=== PATIENT | female | born 1995 | race Caucasian/White ===

== ENCOUNTER 2016-11-12 20:50 | Observation (INO) | payer MEDICAID ==
[~2016-11-12] VITALS: Ht 172.7 cm; Wt 93.9 kg
[2016-11-12 21:33] LABS: Basophils # (auto) 0 uL; Basophils % (auto) 0.2 % (0.0-2.0); CONDITION Y; Eosinophils # (auto) 0 uL; Eosinophils % (auto) 0.3 % (0.0-7.0); Hematocrit 42.3 % (36.0-46.0); Hemoglobin 14.6 g/dL (12.2-16.2); Lymphocytes # (auto) 2.3 uL; Lymphocytes % (auto) 13.5 % (10.0-50.0); Mean Corpuscular Hemoglobin 29.4 pg (28.0-32.0); Mean Corpuscular Hgb Conc. 34.5 g/dL (32.0-36.0); Mean Corpuscular Volume 85.3 fL (80.0-100.0); Mean Platelet Volume 8.8 fL (7.4-10.4); Monocytes # (auto) 1.1 uL; Monocytes % (auto) 6.6 % (0.0-12.0); Neutrophils # (auto) 13.8 uL; Neutrophils % (auto) 79.4 % (37.0-80.0); Platelet Count (auto) 337 10^3/uL (140-450); Red Cell Distribution Width 13.9 % (11.6-16.0); White Blood Cell 17.3 10^3/uL (4.4-10.8)
[2016-11-12 21:46] LABS: Albumin 4.2 g/dL (3.4-5.0); Anion Gap 13 (5-15); Aspartate Aminotransferase 15 U/L (15-37); BUN/Creatinine Ratio 14.9; Blood Urea Nitrogen 14 mg/dL (7-18); Calcium 9.4 mg/dL (8.5-10.1); Carbon Dioxide 20 mmol/L (21-32); Chloride 106 mmol/L (98-107); GFR African American 95 mL/min; GFR Non-African American 78 mL/min; Glucose 111 mg/dL (74-106); Potassium 3.4 mmol/L (3.5-5.1); Sodium 139 mmol/L (136-145)
[2016-11-12 21:50] LABS: Alkaline Phosphatase 67 U/L (45-117); Bilirubin, Total 1.3 mg/dL (0.2-1.0); Total Protein 8.7 g/dL (6.4-8.2)
[2016-11-12 22:31] LABS: Urine Bilirubin Negative (Negative); Urine Blood 1+ /uL (Negative); Urine Color Yellow (Yellow); Urine Glucose Normal (Normal); Urine Hyaline Cast FEW /lpf (0 - 2); Urine Ketone 4+ (Negative); Urine Mucus FEW (None Seen); Urine Nitrite Negative (Negative); Urine RBC 14 /hpf (0 - 4); Urine Squamous Epithelial Cell FEW /hpf (<5)
[2016-11-13] MEDS ORDERED: LORazepam 0.5 MG TAB PO PRN (05:30)
[2016-11-13] MEDS: OLANZapine 5 MG TAB PO SCH (10:35)
[2016-11-14] MEDS: OLANZapine 5 MG TAB PO SCH (14:43)
[2016-11-15] MEDS: OLANZapine 5 MG TAB PO SCH (14:48)
[2016-11-15] MEDS ORDERED: NITROFURANTOIN (MONO) 100 mg CAP PO ONE (15:45)
[2016-11-15 23:39] VITALS: BP 95/53
== END 2016-11-15 23:58 | disposition home or self-care (01) | DRG 751 ==
LOC: ER 21:00 → OVERFLOW 21:01 → ER 11-15 23:58
PROVIDERS: ADMIT Emergency Medicine; ATTEND Emergency Medicine
DX: F23 Brief psychotic disorder (principal); G92 Toxic encephalopathy; F32.9 Major depressive disorder, single episode, unspecified; F41.9 Anxiety disorder, unspecified; F12.10 Cannabis abuse, uncomplicated
CPT/HCPCS: 36415; 80053; 80307; 80320; 81001; 85025; 99285; G0378

== ENCOUNTER 2018-07-10 20:01 | Emergency (ER) | payer MEDICAID ==
[~2018-07-10] VITALS: Ht 165.1 cm; Wt 106.6 kg
[2018-07-10 20:15] VITALS: BP 101/70
[2018-07-10] MEDS ORDERED: LORazepam 2MG/ML-1ML VIAL IM ONE (21:45)
[2018-07-10] MEDS ORDERED: HALOPERIDOL LACTATE 5 MG/ML INJ VIAL IM ONE (21:45)
[2018-07-10] MEDS ORDERED: diphenhdrAMINE HCL 50 MG/1 ML VL IM ONE (21:45)
== END 2018-07-11 02:15 | disposition left against medical advice (07) ==
LOC: EDBD 20:01 → ER 20:09
DX: O99.341 Other mental disorders complicating pregnancy, first trimester (principal); O26.891 Other specified pregnancy related conditions, first trimester; F31.9 Bipolar disorder, unspecified; F23 Brief psychotic disorder; F12.10 Cannabis abuse, uncomplicated; F15.10 Other stimulant abuse, uncomplicated; Z3A.08 8 weeks gestation of pregnancy

== ENCOUNTER 2018-07-12 18:51 | Emergency (ER) | payer MEDICAID, OTHER ==
[~2018-07-12] VITALS: Ht 172.7 cm; Wt 104.3 kg
[2018-07-12] MEDS ORDERED: HALOPERIDOL LACTATE 5 MG/ML INJ VIAL ONE (19:24)
[2018-07-12] MEDS ORDERED: diphenhdrAMINE HCL 50 MG/1 ML VL ONE (19:24)
[2018-07-12] MEDS ORDERED: LORazepam 2MG/ML-1ML VIAL ONE (19:24)
[2018-07-12] MEDS ORDERED: HALOPERIDOL LACTATE 5 MG/ML INJ VIAL IM ONE (19:45)
[2018-07-12] MEDS ORDERED: LORazepam 2MG/ML-1ML VIAL IV ONE (19:45)
[2018-07-12] MEDS ORDERED: diphenhdrAMINE HCL 50 MG/1 ML VL IV ONE (19:45)
[2018-07-12] MEDS ORDERED: SODIUM CHLORIDE 0.9% 1,000 ML IV ONE (20:45)
[2018-07-12 22:32] LABS: Alanine Aminotransferase 23 U/L (13-56); Albumin 3.5 g/dL (3.4-5.0); Alkaline Phosphatase 52 U/L (45-117); Anion Gap 7 (5-15); Aspartate Aminotransferase 19 U/L (15-37); Bilirubin, Total 0.4 mg/dL (0.2-1.0); Blood Alcohol < 3.0 mg/dL (0-5); Blood Urea Nitrogen 9 mg/dL (7-18); Calcium 8.6 mg/dL (8.5-10.1); Carbon Dioxide 23 mmol/L (21-32); Chloride 109 mmol/L (98-107); GFR African American 109 mL/min; GFR Non-African American 90 mL/min; Glucose 94 mg/dL (74-106); Potassium 3.2 mmol/L (3.5-5.1); Sodium 139 mmol/L (136-145); Total Protein 7.3 g/dL (6.4-8.2)
[2018-07-12 23:06] LABS: Basophils # (auto) 0.1 uL; Basophils % (auto) 0.7 % (0.0-2.0); Eosinophils # (auto) 0.1 uL; Eosinophils % (auto) 0.5 % (0.0-7.0); Hemoglobin 12.9 g/dL (12.2-16.2); Lymphocytes # (auto) 3.5 uL; Lymphocytes % (auto) 29.3 % (10.0-50.0); Mean Corpuscular Hemoglobin 28.4 pg (28.0-32.0); Mean Corpuscular Hgb Conc. 34.1 g/dL (32.0-36.0); Mean Corpuscular Volume 83.4 fL (80.0-100.0); Monocytes % (auto) 8.1 % (0.0-12.0); Neutrophils # (auto) 7.4 uL; Neutrophils % (auto) 61.4 % (37.0-80.0); Nucleated Red Blood Cells % 0.1 %; Platelet Count (auto) 273 10^3/uL (140-450); Red Blood Cells 4.55 10^6/uL (4.0-5.20); Red Cell Distribution Width 13.6 % (11.8-14.3)
[2018-07-13 02:16] LABS: Salicylate < 1.7 mg/dL (2.8-20.0)
[2018-07-13 02:26] LABS: Acetaminophen < 2.0 ug/mL (10-30)
[2018-07-13 06:05] LABS: Urine Bacteria NONE SEEN /hpf (None Seen); Urine Blood Negative /uL (Negative); Urine Mucus MODERATE (None Seen); Urine Specific Gravity 1.032 (1.001-1.035); Urine WBC 3 /hpf (0 - 5)
[2018-07-13 06:27] LABS: Amphetamine Screen, Urine NEGATIVE (NEGATIVE); Barbiturate Scree,Urine NEGATIVE (NEGATIVE); Benzodiazephine Screen, Urine NEGATIVE (NEGATIVE); Cannabinoid Screen, Urine POSITIVE (NEGATIVE); Opiate Scree,Urine NEGATIVE (NEGATIVE)
[2018-07-13 06:37] LABS: Cocaine Screen, Urine NEGATIVE (NEGATIVE); Phencyclidine Screen, Urine NEGATIVE (NEGATIVE)
[2018-07-13] MEDS ORDERED: OLANZapine 5 MG TAB PO SCH (11:00)
[2018-07-13] MEDS ORDERED: NICOTINE 21MG/24 HR TOPICAL PATCH TD ONE (11:00)
[2018-07-13] MEDS ORDERED: LORazepam 0.5 MG TAB PO SCH (11:00)
[2018-07-13] MEDS ORDERED: POTASSIUM CHL 10% (20 MEQ/15ML) 15ml ORAL SOLN PO ONE (11:30)
[2018-07-13 12:57] VITALS: BP 95/52
[2018-07-13] MEDS ORDERED: diphenhdrAMINE HCL 25 MG CAP PO SCH (22:00)
[2018-07-14] MEDS ORDERED: FOLIC ACID 1 MG TAB PO SCH (10:00)
== END 2018-07-13 13:17 | disposition short-term general hospital (02) ==
LOC: ER 19:10 → MERGE 19:10 → ER 07-13 13:17
DX: R45.851 Suicidal ideations (principal); F31.9 Bipolar disorder, unspecified; F41.9 Anxiety disorder, unspecified; F20.9 Schizophrenia, unspecified
CPT/HCPCS: 36415; 51702; 71045; 80053; 80307; 80320; 80329; 81001; 84702; 85025; 93005; 94761; 96372; 96374; 96375; 99285; J1200; J1630; J2060; J7030; 96361

== ENCOUNTER 2019-02-17 13:42 | Emergency (ER) | payer MEDICAID ==
[~2019-02-17] VITALS: Ht 172.7 cm; Wt 79.4 kg
[2019-02-17 14:13] VITALS: BP 125/80
== END 2019-02-17 15:09 | disposition home or self-care (01) ==
LOC: ER 13:42
DX: Z04.6 Encounter for general psychiatric examination, requested by authority (principal); F29 Unspecified psychosis not due to a substance or known physiological condition; F32.9 Major depressive disorder, single episode, unspecified; F20.9 Schizophrenia, unspecified; F17.210 Nicotine dependence, cigarettes, uncomplicated; F12.10 Cannabis abuse, uncomplicated; F15.10 Other stimulant abuse, uncomplicated

== ENCOUNTER 2019-04-10 09:40 | Emergency (ER) | payer MEDICAID ==
[~2019-04-10] VITALS: Ht 165.1 cm; Wt 86.2 kg
[2019-04-10] MEDS ORDERED: HALOPERIDOL LACTATE 5 MG/ML INJ VIAL ONE (09:57)
[2019-04-10] MEDS ORDERED: diphenhdrAMINE HCL 50 MG/1 ML VL IM ONE (10:00)
[2019-04-10] MEDS ORDERED: LORazepam 2MG/ML-1ML VIAL IM ONE (10:00)
[2019-04-10] MEDS ORDERED: HALOPERIDOL LACTATE 5 MG/ML INJ VIAL IM ONE (10:00)
[2019-04-10 10:03] VITALS: BP 150/107
[2019-04-10 10:49] LABS: Basophils # (auto) 0.1 uL; Basophils % (auto) 0.7 % (0.0-2.0); Eosinophils # (auto) 0 uL; Eosinophils % (auto) 0.1 % (0.0-7.0); Hematocrit 40.7 % (36.0-46.0); Hemoglobin 14.1 g/dL (12.2-16.2); Lymphocytes # (auto) 1.3 uL; Lymphocytes % (auto) 14.1 % (10.0-50.0); Mean Corpuscular Hemoglobin 28.6 pg (28.0-32.0); Mean Corpuscular Hgb Conc. 34.5 g/dL (32.0-36.0); Mean Corpuscular Volume 82.7 fL (80.0-100.0); Monocytes # (auto) 0.8 uL; Monocytes % (auto) 8.8 % (0.0-12.0); Neutrophils # (auto) 6.8 uL; Neutrophils % (auto) 76.3 % (37.0-80.0); Platelet Count (auto) 230 10^3/uL (140-450); Red Blood Cells 4.92 10^6/uL (4.0-5.20); Red Cell Distribution Width 13.4 % (11.8-14.3); White Blood Cell 8.9 10^3/uL (4.4-10.8)
[2019-04-10 11:06] LABS: Albumin 3.6 g/dL (3.4-5.0); Anion Gap 10 (5-15); BUN/Creatinine Ratio 12.3; Blood Alcohol < 3.0 mg/dL (0-5); Blood Urea Nitrogen 10 mg/dL (7-18); Calcium 9.1 mg/dL (8.5-10.1); Carbon Dioxide 21 mmol/L (21-32); Chloride 110 mmol/L (98-107); GFR African American 111 mL/min; GFR Non-African American 92 mL/min; Glucose 101 mg/dL (74-106); Potassium 3.3 mmol/L (3.5-5.1); Sodium 141 mmol/L (136-145)
[2019-04-10 11:07] LABS: Acetaminophen < 2.0 ug/mL (10-30)
[2019-04-10 11:09] LABS: Alanine Aminotransferase 26 U/L (13-56); Alkaline Phosphatase 58 U/L (45-117); Aspartate Aminotransferase 18 U/L (15-37); Bilirubin, Total 0.5 mg/dL (0.2-1.0); Total Protein 8.1 g/dL (6.4-8.2)
[2019-04-10 16:49] LABS: Alcohol, Urine < 3.0 mg/dL (0-5); Barbiturate Scree,Urine POSITIVE (NEGATIVE); Benzodiazephine Screen, Urine NEGATIVE (NEGATIVE); Cannabinoid Screen, Urine POSITIVE (NEGATIVE); Cocaine Screen, Urine NEGATIVE (NEGATIVE); Opiate Scree,Urine NEGATIVE (NEGATIVE); Phencyclidine Screen, Urine NEGATIVE (NEGATIVE)
[2019-04-10 16:56] LABS: Amphetamine Screen, Urine NEGATIVE (NEGATIVE)
[2019-04-10 17:04] LABS: Urine Bacteria NONE SEEN /hpf (None Seen); Urine Blood 1+ /uL (Negative); Urine Mucus FEW (None Seen); Urine WBC 25 /hpf (0 - 5)
== END 2019-04-10 22:05 | disposition left against medical advice (07) ==
LOC: EDBD 09:40 → ER 09:40
DX: F41.9 Anxiety disorder, unspecified (principal); F31.9 Bipolar disorder, unspecified; F20.9 Schizophrenia, unspecified; R45.851 Suicidal ideations; F17.210 Nicotine dependence, cigarettes, uncomplicated; F12.10 Cannabis abuse, uncomplicated
CPT/HCPCS: 36415; 80053; 80307; 80320; 80329; 81001; 85025; 96372; 99284; J1200; J1630; J2060; A4565

== ENCOUNTER 2021-11-03 12:36 | Emergency (ER) | payer MEDICAID ==
[~2021-11-03] VITALS: Ht 175.3 cm; Wt 124.0 kg
[2021-11-03 13:02] VITALS: BP 95/60
[2021-11-03 14:36] LABS: Urine Bacteria MOD /hpf (None Seen); Urine Blood TRACE /uL (Negative); Urine WBC 5 /hpf (0 - 5)
[2021-11-03] MEDS ORDERED: TAM04C PO (14:38)
[2021-11-03] MEDS ORDERED: IBUP800T27 PO (14:38)
== END 2021-11-03 14:45 | disposition home or self-care (01) ==
LOC: ER 12:36
DX: N20.0 Calculus of kidney (principal); D36.9 Benign neoplasm, unspecified site; F17.210 Nicotine dependence, cigarettes, uncomplicated; Z79.1 Long term (current) use of non-steroidal anti-inflammatories (NSAID); Z79.899 Other long term (current) drug therapy
CPT/HCPCS: 74176; 81001; 81025

== ENCOUNTER 2025-01-02 11:04 | Emergency (ER) | payer MEDICAID ==
[~2025-01-02] VITALS: Ht 175.3 cm; Wt 140.1 kg
[~2025-01-02 11:04] MED LIST: IBUP-1456 PO; TAMS-35 PO
[2025-01-02 11:06] VITALS: BP 144/91; PULSE 78; RESP 18; TEMP 98.1; O2SAT 97
--- NOTE | 2025-01-02 11:47 | ED.PDOC ---
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 PATIENT STATES SHE WAS HAVING INTERCOURSE WITH SPOUSE LAST NIGHT. AFTER THAT, SHE STARTED HAVING MILD VAGINAL BLOOD AND PAIN. PATIENT DENIES FEVER, CHILLS, SHORTNESS OF BREATH, CHEST PAIN, ABDOMINAL PAIN, NAUSEA, VOMITING, HEADACHE, OR OTHER COMPLAINTS. NO OTHER SYMPTOMS OR MODIFYING FACTORS AT THIS TIME. PATIENT IS ALERT, ORIENTED X 4, AND HAS STEADY GAIT. Chief Complaint: Vaginal Discharge Time Seen by MD: 11:45 Reviewed Notes: Nurses Notes, Medications, Allergies Allergies: Coded Allergies: NO KNOWN ALLERGIES (Unverified , 11/28/11) Home Meds Active Scripts Tamsulosin Hcl (Flomax) 0.4 Mg Cap, 0.4 MG PO DAILY, #20 CAP Prov:PRABHU VILLA 11/03/21 Ibuprofen (Ibuprofen) 800 Mg Tab, 800 MG PO TID PRN, #30 TAB Prov:PRABHU VILLA 11/03/21 Information Source: Patient Mode of Arrival: Ambulatory Timing: Days Prehospital treatment: None Severity: Mild Vaginal Discharge: None Vaginal Lesions: None Vaginal Mass: None Onset Of Mass/Bleeding: Following [place] Sexual Activity: Neither Last Consensual [place]: Unknown Control: None Blood Type: Unknown Post Assault: Done Nothing Associated Signs and Symptoms: None Past Medical History PAST MEDICAL HISTORY: Depression, Schizophrenia Surgical History: Denies all surgeries NUCLEAR OPERATIONS SPECIALIST History: Denies all NUCLEAR OPERATIONS SPECIALIST Hx Family History Family History: Reviewed,noncontributory to illness Social History Smoker: Cigarettes Alcohol: Occasionally Drugs: Marijuana Lives In: Home Constitutional: reports: others (ANXIOUS ); denies: chills, diaphoresis, fatigue, fever, malaise, sweats, weakness EENTM: denies: blurred vision, double vision, ear bleeding, ear discharge, ear drainage, ear pain, ear ringing, eye pain, eye redness, hearing loss, mouth pain, mouth swelling, nasal discharge, nose bleeding, nose congestion, nose pain, photophobia, tearing, throat pain, throat swelling, voice changes, others Respiratory: denies: cough, hemoptysis, orthopnea, SOB at rest, shortness of breath, SOB with excertion, stridor, wheezing, others Cardiovascular: denies: chest pain, dizzy spells, diaphoresis, Dyspnea on exertion, edema, irregular heart beat, left arm pain, lightheadedness, palpitations, PND, syncope, others Gastrointestinal: denies: abdomen distended, abdominal pain, blood streaked bowels, constipated, diarrhea, dysphagia, difficulty swallowing, hematemesis, melena, nausea, poor appetite, poor fluid intake, rectal bleeding, rectal pain, vomiting, others Genitourinary: reports: pain (VAGINAL ); denies: abnormal vagina bleeding, burning, dyspareunia, dysuria, flank pain, frequency, hematuria, incontinence, , vagina discharge, urgency, others Neurological: denies: dizziness, fainting, headache, left sided numbness, left sided weakness, numbness, paresthesia, pre-existing deficit, right sided numbness, right sided weakness, seizure, speech problems, tingling, tremors, weakness, others Musculoskeletal: denies: back pain, gout, joint pain, joint swelling, muscle pain, muscle stiffness, neck pain, others Integumetry: denies: bruises, change in color, change in hair/nails, dryness, laceration, lesions, lumps, rash, wounds, others Allergic/Immunocompromised: denies: Difficulty Healing, Frequent Infections, Hives, Itching, others Hematologic/Lymphatic: denies: anemia, blood clots, easy bleeding, easy bruising, swollen glands, others Endocrine: denies: excessive hunger, excessive sweating, excessive thirst, excessive urination, flushing, intolerance to cold, intolerance to heat, unexplained weight gain, unexplained weight loss, others Psychiatric: denies: anxiety, bipolar disorder, depression, hopeless, panic disorder, schizophrenia, sleepless, suicidal, others All Other Systems: Reviewed and Negative Physical Exam General Appearance: Mild Distress, Obese HEENT: Normal ENT Inspection, PERRL/EOMI, Pharynx Normal, TMs Normal Neck: Full Range of Motion, Non-Tender, Normal, Normal Inspection Respiratory: Chest Non-Tender, Lungs Clear, No Accessory Muscle Use, No Respiratory Distress, Normal Breath Sounds Cardiovascular: No Edema, No JVD, No Murmur, No Gallop, Normal Peripheral Pulses, Regular Rate/Rhythm Breast Exam: Deferred Gastrointestinal: No Organomegaly, Non Tender, No Pulsatile Mass, Normal Bowel Sounds, Soft Genitalia: Normal (NO VAGINAL BLEEDING AND BLOOD CLOTS WITH PELVIC EXAM. NO VAGINAL SKIN TEAR NOTED. ) Pelvic: Normal External Exam, Other (NO VAGINAL BLEEDING AND VAGINAL DISCHARGE, NO VAGINAL SKIN TEAR. 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 Was a procedure done?: Yes Sedation Sedation?: No Pelvic Exam Vaginal Discharge: None Vaginal Lesions: None Vaginal Mass: None Cervix: os closed Notes NO VAGINAL BLEEDING AND SKIN TEAR. Differential Diagnosis (NUCLEAR OPERATIONS SPECIALIST) Vaginal Bleeding: UTI, Other (DYSPAREUNIA) Mass / Lesion: PID Vaginal Discharge: UTI, Vaginitis - Bacterial, Vaginitis - Contact X-Ray, Labs, Meds, VS Vital Signs Date Time Temp Pulse Resp B/P (MAP) Pulse Ox O2 Delivery O2 Flow Rate FiO2 01/02/25 11:06 98.1 78 18 144/91 97 98.1 Lab Test 01/02/25 12:02 Range/Units Urine Color Yellow Yellow Urine Clarity Clear Clear Urine pH 6.0 5.0-9.0 Urine Specific [place] 1.025 1.001-1.035 Urine Protein Trace H Negative Urine Ketones Negative Negative Urine Blood 1+ H Negative /uL Urine Nitrite Negative Negative Urine Bilirubin Negative Negative Urine Urobilinogen Normal Negative mg/dL Urine Leukocyte Esterase Trace Negative /uL Urine RBC 9 0 - 4 /hpf Urine Microscopic WBC 8 H 0-5 /HPF Urine Squamous Epithelial Cells Few <5 /hpf Urine Bacteria Many H None Seen /hpf Urine Mucus Few None Seen Urine Glucose Normal Normal mg/dL Urine Test Negative Negative X-Ray, Labs, Meds, VS Comment COURSE: EXTERNAL MEDICAL RECORDS REVIEWED: [NONE] INDEPENDENT HISTORIANS: [NONE] SOCIAL DETERMINANTS OF HEALTH: [NONE] LABS ORDERED: URINALYSIS, URINE TEST REVIEWED AND INTERPRETED RESULTS: NORMAL IMAGING ORDERED: PELVIC ULTRASOUND: PT ELOPED. TREATMENTS ORDERED: NO PROCEDURES PERFORMED: NONE CRITICAL CARE TIME: NONE 14:00 CALLED PT 3 TIMES, NO ANSWER, ELOPED. Time of 1ST Reevaluation: 14:00 Reevaluation 1ST: Unchanged Patient Education/Counseling: Diagnosis, Treatment Family Education/Counseling: Diagnosis, Treatment, No Family Present Departure 1 Departure Time of Disposition: 14:00 Impression: Primary Impression: Vaginal irritation Disposition: 07 LEFT AWOL/ELOPED Condition: Stable Critical Care Note Critical Care Time?: No Stability Stability form required: No Heart Score Heart Score: Heart Score Response (Comments) Value History N/A 0 EKG N/A 0 Age N/A 0 Risk Factors N/A 0 Troponin N/A 0 Total 0 I personally scribed for PRABHU VILLA ([email or web address]) on 01/02/25 at 11:47. Electronically submitted by Melanie Lombardi ([email or web address]). I personally scribed for PRABHU VILLA ([email or web address]) on 01/02/25 at 11:53. Electronically submitted by Melanie Lombardi ([employer]). I personally scribed for PRABHU VILLA ([email or web address]) on 01/02/25 at 12:37. Electronically submitted by Melanie Lombardi ([employer]). I personally scribed for PRABHU VILLA ([email or web address]) on 01/02/25 at 12:54. Electronically submitted by Melanie Lombardi ([employer]WARD). PRABHU VILLA Jan 02, 2025 11:47
[2025-01-02 12:41] LABS: Urine Protein, UAD TRACE (Negative)
== END 2025-01-02 13:53 | disposition left against medical advice (07) ==
LOC: ER 11:04
DX: N89.8 Other specified noninflammatory disorders of vagina (principal); F12.90 Cannabis use, unspecified, uncomplicated; F10.90 Alcohol use, unspecified, uncomplicated; F17.210 Nicotine dependence, cigarettes, uncomplicated; F20.9 Schizophrenia, unspecified; F32.A Depression, unspecified; Z79.899 Other long term (current) drug therapy; Y90.9 Presence of alcohol in blood, level not specified
CPT/HCPCS: 81001; 81025